=== PATIENT | male | born 1985 | race Caucasian/White ===

== ENCOUNTER 2017-06-19 02:03 | Emergency (ER) | payer OTHER ==
[~2017-06-19] VITALS: Ht 188 cm; Wt 125.0 kg
[2017-06-19 02:16] VITALS: BP 157/98; PULSE 88; RESP 18; TEMP 98.1; O2SAT 98
[2017-06-19] MEDS ORDERED: CYCL10TA PO (02:55)
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
[2017-06-19] MEDS ORDERED: IBUPROFEN 600 MG TAB PO ONE (03:00)
== END 2017-06-19 03:20 | disposition home or self-care (01) ==
LOC: NEPE 02:03
DX: S39.012A Strain of muscle, fascia and tendon of lower back, initial encounter (principal); S70.02XA Contusion of left hip, initial encounter; V43.92XA Unspecified car occupant injured in collision with other type car in traffic accident, initial encounter; Z72.0 Tobacco use; Z88.0 Allergy status to penicillin; Z79.899 Other long term (current) drug therapy
CPT/HCPCS: 99283